=== PATIENT | female | born 1960 ===

== ENCOUNTER 2024-08-02 11:45 | Inpatient (IN) | payer OTHER ==
[~2024-08-02] VITALS: Ht 91.4 cm; Wt 64.4 kg
[2024-08-02] MEDS ORDERED: VITAMIN D310 MC4 PO (14:52)
[2024-08-02] MEDS ORDERED: LIPITOR20 MG PO (14:52)
[2024-08-02] MEDS ORDERED: B COMPLEX1 EACH (14:53)
[2024-08-02 14:54] VITALS: BP 125/82
[2024-08-07 10:16] LABS: RH POSITIVE
[2024-08-07] MEDS ORDERED: CEFAZOLIN SODIUM 1,000 MG VIAL IV ONE (10:30)
[2024-08-07] MEDS ORDERED: POVIDONE-IODINE 118 ML BOTT TOP ONE (10:30)
[2024-08-07] MEDS ORDERED: HEMOSTATIC MATRIX 1 KIT KIT TOP ONE (11:45)
[2024-08-07] MEDS ORDERED: SURGIFLO APPLICATOR 1 EACH APPL TOP ONE (11:45)
[2024-08-07] MEDS ORDERED: RINGERS SOLUTION,LACTATED 1,000 ML IV SCH (12:30)
[2024-08-07] MEDS ORDERED: ONDANSETRON HCL 2 MG/ML VIAL IV PRN (12:30)
[2024-08-07] MEDS ORDERED: MORPHINE SULFATE 4 MG,MORPHINE SULFATE 2 MG IV PRN (12:30)
[2024-08-07] MEDS ORDERED: SUGAMMADEX SODIUM 200 MG/2 ML VIAL IV ONE (12:45)
[2024-08-07] MEDS ORDERED: MORPHINE SULFATE 4 MG/ML VIAL IV ONE ×2 (12:50→13:20)
[2024-08-07 14:30] VITALS: BP 125/82
[2024-08-07 16:21] VITALS: BP 109/72
[2024-08-07 17:49] LABS: HEMOGLOBIN 12.4 g/dL (12.0-15.00); MEAN CELL VOLUME 90.2 fL (80.00-100.00); MEAN CORPUSCULAR HEMOGLOBIN 29.5 pg (27.00-32.0); MEAN CORPUSCULAR HGB CONC 32.7 g/dl (32.0-36.0); PLATELET COUNT 261 K/uL (150-450); RED BLOOD COUNT 4.22 M/uL (4.00-6.00); RED CELL DISTRIBUTION WIDTH 13.6 % (11.5-14.5)
[2024-08-07] MEDS ORDERED: CEFAZOLIN SODIUM 1,000 MG VIAL IV SCH (18:00)
[2024-08-08 01:11] VITALS: BP 103/68
[2024-08-08] MEDS ORDERED: IBU800 MG PO (06:56)
[2024-08-08 08:00] VITALS: BP 93/62
[2024-08-08] MEDS ORDERED: ENOXAPARIN SODIUM 40 MG/0.4 ML SYRINGE SUBCUTANEO SCH (09:00)
[2024-08-08] MEDS ORDERED: ATORVASTATIN CALCIUM 20 MG TABLET PO SCH (17:00)
== END 2024-08-08 10:13 | disposition home or self-care (01) | DRG 741 ==
LOC: O/R 08-07 05:53 → SURH 08-07 11:45 → OB/GYN 08-07 12:46 → SURH 08-07 14:00 → OB/GYN 08-08 10:13
PROVIDERS: ADMIT Obstetrics & Gynecology Gynecology; ATTEND Obstetrics & Gynecology Gynecology
PROC: 0UT74ZZ Resection of Bilateral Fallopian Tubes, Percutaneous Endoscopic Approach (ICD-10-PCS; 2024-08-07)
PROC: 0UT24ZZ Resection of Bilateral Ovaries, Percutaneous Endoscopic Approach (ICD-10-PCS; 2024-08-07)
PROC: 0UT94ZZ Resection of Uterus, Percutaneous Endoscopic Approach (ICD-10-PCS; principal; 2024-08-07 14:00)
DX: D06.7 Carcinoma in situ of other parts of cervix (principal); N94.89 Other specified conditions associated with female genital organs and menstrual cycle; N85.01 Benign endometrial hyperplasia; Z20.822 Contact with and (suspected) exposure to COVID-19; E78.00 Pure hypercholesterolemia, unspecified